=== PATIENT | female | born 1995 | race Caucasian/White ===

== ENCOUNTER 2017-01-27 09:35 | Emergency (ER) | payer SELFPAY ==
[~2017-01-27] VITALS: Ht 170.2 cm; Wt 55.2 kg
[2017-01-27] MEDS ORDERED: TETRACAINE 0.5% OPHTH DROPS 4ML RIGHTEYE ONE (10:45)
[2017-01-27] MEDS ORDERED: FLUORESCEIN SODIUM 1MG/STRIP EACHEYE ONE (11:30)
[2017-01-27] MEDS ORDERED: TETRACAINE 0.5% OPHTH DROPS 4ML EACHEYE ONE (11:30)
[2017-01-27 12:14] VITALS: BP 110/74
== END 2017-01-27 13:50 | disposition home or self-care (01) ==
LOC: ER 13:37
DX: H10.211 Acute toxic conjunctivitis, right eye (principal); F17.210 Nicotine dependence, cigarettes, uncomplicated; F12.10 Cannabis abuse, uncomplicated; T49.5X5A Adverse effect of ophthalmological drugs and preparations, initial encounter; Y92.018 Other place in single-family (private) house as the place of occurrence of the external cause
CPT/HCPCS: 99283

== ENCOUNTER 2019-12-09 22:38 | Emergency (ER) | payer SELFPAY ==
[~2019-12-09] VITALS: Ht 170.2 cm; Wt 61.0 kg
[2019-12-09 23:55] LABS: BASOPHILS % 0.7 % (0.0-2.0); EOSINOPHILS % 1.7 % (0.0-5.0); HEMATOCRIT. 31.6 % (36.0-48.0); HEMOGLOBIN. 10.2 g/dL (12.0-16.0); LYMPHOCYTES % 28.5 % (20.0-50.0); MEAN CORPUSCULAR HEMOGLOBIN 25.7 pg (28.0-32.0); MEAN CORPUSCULAR VOLUME 79.2 fL (81.0-99.0); NEUTROPHILS % 58.1 % (40.0-76.0); PLATELET 266 x1000/uL (130-400); RED BLOOD CELL COUNT 3.99 mill/uL (4.2-5.4); RED CELL DISTRIBUTION WIDTH 18.8 % (11.6-14.6)
[2019-12-10] MEDS ORDERED: KETOROLAC 30MG/ML VIAL IV ONE
[2019-12-10 00:04] LABS: CHLORIDE 107 mEq/L (98-107)
[2019-12-10 00:09] LABS: HCG SCREEN NEGATIVE
[2019-12-10 01:59] VITALS: BP 137/67
== END 2019-12-10 02:01 | disposition home or self-care (01) ==
LOC: ER 22:38
DX: U07.1 COVID-19 (principal)
CPT/HCPCS: 36415; 71045; 80053; 83880; 84484; 84703; 85025; 87635; 93005; 96374; 99285; C9803; J1885

== ENCOUNTER 2020-07-08 01:00 | Emergency (ER) | payer MEDICAID, SELFPAY ==
[~2020-07-08] VITALS: Ht 170.2 cm; Wt 57.4 kg
[2020-07-08] MEDS ORDERED: KETOROLAC 60MG/2ML VIAL IM STA (01:55)
[2020-07-08] MEDS ORDERED: TETANUS, DIPHTHERIA, PERTUSSIS VAC/PF 0.5ML (>7YR OLD) IM ONE (02:00)
[2020-07-08] MEDS ORDERED: LIDOCAINE HCL/EPINEPHRINE 1%-EPI 1:100,000 20 ML VIAL INFIL ONE (02:00)
[2020-07-08] MEDS ORDERED: BACITRACIN ZINC OINT UDPKT TOP ONE (02:00)
[2020-07-08] MEDS ORDERED: CEPHALEXIN 250MG CAPSULE PO STA (04:33)
[2020-07-08 05:29] VITALS: BP 116/77
== END 2020-07-08 05:32 | disposition home or self-care (01) ==
LOC: ER 01:00
DX: S61.412A Laceration without foreign body of left hand, initial encounter (principal); Y08.89XA Assault by other specified means, initial encounter; Y93.89 Activity, other specified; Y92.89 Other specified places as the place of occurrence of the external cause; Y99.8 Other external cause status; F12.10 Cannabis abuse, uncomplicated
CPT/HCPCS: 12002; 73110; 81025; 90471; 90715; 96372; 99284; A4217; J1885; J3490; Z7610